=== PATIENT | female | born 1975 | race Caucasian/White ===

== ENCOUNTER → 2018-05-05 | Outpatient (CLI) | payer OTHER ==
--- NOTE | 2018-05-05 15:08 | RADIOLOGY IMAGING REPORT ---
FACILITY: [facility] PATIENT NAME: ABBEY FOSTER : [id number] MR: [id number] V: [id number] EXAM DATE: ORDERING PHYSICIAN: SADAF LEE TECHNOLOGIST: Muriel Veloz PROCEDURE:BILATERAL DIAGNOSTIC DIGITAL MAMMOGRAM WITH CAD ASSISTED INTERPRETATION & 3D TOMOSYNTHESIS COMPARISON:Today's Left breast Ultrasound INDICATIONS:CLEAR AND BLOODY BILATERAL NIPLLE DISCHARGE/ITCHING ONE MONTH FINDINGS: Moderately dense fibroglandular tissue is seen throughout the breasts. There is an ovoid nodular density in the upper outer quadrant of the Left breast in the middle 1/3 this was shown sonographically to represent a 1cm cyst on Today's Left breast Ultrasound. Otherwise no mammographic abnormalities are identified to account for patient's clear and bloody nipple discharge or flakiness in the medial portion of both nipples. Given this finding clinical follow-up with possible biopsy of the flaking skin in the medial portion of both areolas recommended. DIAGNOSTIC CATEGORY 2--BENIGN FINDING. RECOMMENDATIONS: ROUTINE MAMMOGRAM AND CLINICAL EVALUATION. CLINICAL EVALUATION. IMPRESSION: BIRADS 2: Benign finding. There is a 1cm cyst in the upper outer quadrant of the Left breast. Clinical follow-up recommended for patient's clear and bloody nipple discharge and flakiness in the medial portion of both areolas of both breast with no mammographic correlate. The clinical follow-up may include biopsy of this flaky skin depending upon the clinical presentation. Dictated by: Syl Hamilton M.D. on 05/05/2018 at 14:49 Transcribed by: MACKENZIE on 05/05/2018 at 15:04 Approved by: Syl Hamilton M.D. on 05/05/2018 at 15:07 [facility]
--- NOTE | 2018-05-05 15:16 | RADIOLOGY IMAGING REPORT ---
FACILITY: [facility] - [place] PATIENT NAME: ABBEY FOSTER : [id number] MR: [id number] V: [id number] EXAM DATE: [id number] ORDERING PHYSICIAN: SADAF LEE TECHNOLOGIST: Suleiman Medina RDMS, ANTONI PROCEDURE:US LEFT BREAST COMPARISON:None. INDICATIONS:further evaluation FINDINGS: There is a 1cm cyst in the 2 o'clock position of the Left breast 5cm from the nipple which accounts for the nodular density seen on today's mammogram. DIAGNOSTIC CATEGORY 2--BENIGN FINDING. RECOMMENDATIONS: ROUTINE MAMMOGRAM AND CLINICAL EVALUATION. CLINICAL EVALUATION. IMPRESSION: BIRADS 2: Benign finding. There is a 1cm cyst in the 2 o'clock position of the Left breast. Dictated by: Syl Hamilton M.D. on 05/05/2018 at 15:07 Transcribed by: MACKENZIE on 05/05/2018 at 15:13 Approved by: Syl Hamilton M.D. on 05/05/2018 at 15:15 [facility]
== END ==
LOC: MAMO 13:35
PROVIDERS: ATTEND Nurse Practitioner Family
DX: N60.02 Solitary cyst of left breast (principal)
CPT/HCPCS: 77062; 77066